=== PATIENT | female | born 1935 | race Caucasian/White ===

== ENCOUNTER 2022-07-21 13:56 | Outpatient (RCR) | payer MEDICARE, OTHER, SELFPAY ==
--- NOTE | 2022-07-21 15:10 | PTOPEVAL1 ---
Assessment and note entered by Violette Sanchez, PT Evaluation Information Assessment Status Evaluation/ discharge Diagnosis B LE lymphedema Subjective Information Daughter Yari is present with pt and reports she has a pump for legs, they are doing 2x/day; She reports Joselin is not able to come in for therapy 2-3x/week. She thought this was dr visit for lymphedema, did not realize it was therapy and she had to come more than once. There is not transportation available to bring her in for lymphedema treatment. She called her dad on the phone and they are interested in the velcro garments, to use instead of the gus bandage wraps. Reported Pain Level Pain Score Self Report Additional Pain Score Comments both knees with pain and legs tender and sore to touch Assessment PT Clinical Summary Joselin has the diagnosis of B LE lymphedema. Her daughter brought her in today and they were expecting a one time visit only, did not realize it was a referral for treatment and would require 2-3x/wk visits. They are not able to do this due to transportation issues and pt's decreased mobility. She is currently residing at assisted living facility and getting PT there for mobility. Education provided to pt and Yari--general lymphedema information, what PT treatment involves elevating legs, doing leg exercises to help decrease swelling,skin care, LE precautions. Discussed use of compression velcro garment, instead of the gus wraps to manage her legs. They were interested in the velcro garments; Measured her legs for [employer] juxtafit essential lower leg garments: size medium, length short; issued info to pt and list of suppliers where they can order them. The garments come with instructions and there is online education videos for them. Issued her my name and number to call for any questions. Discharge PT services, due to pt is not able to return for treatments. Plan of Care PT Services Indicated No These treatments will address the objective and functional deficits as defined above. The patient will be advanced safely and appropriately in order for the patient to progress towards his/her prior level of function. Additional exercises will be introduced and as well as a comprehensive home exercise program upon discharge
== END 2022-07-21 15:22 | disposition home or self-care (01) ==
LOC: ANHPT 13:56
PROVIDERS: PCP Family Medicine; Visit Provider Family Medicine
DX: I89.0 Lymphedema, not elsewhere classified (principal)
CPT/HCPCS: 97161

== ENCOUNTER 2022-12-05 17:18 | Emergency (ER) | payer MEDICARE, OTHER, SELFPAY ==
--- NOTE | ~2022-12-05 | XR_ITS ---
EXAM: XR tibia fibula RT 2V DATE: 12/05/2022 17:44 HISTORY: Skin tear to right lower leg . COMPARISON: None available. FINDINGS: Decreased mineralization. No fracture or dislocation. No lytic or blastic lesion. Moderate degenerative changes in the knee, ankle, and midfoot. Plantar and Achilles enthesopathy. No erosion or periosteal change. Soft tissue swelling and cutaneous irregularity anteriorly. Vascular calcificat ions. IMPRESSION: No acute osseous finding in the right tibia/fibula. Reviewed, dictated and finalized at location K.
[2022-12-05 17:23] VITALS: BP 143/74; PULSE 89; RESP 18; TEMP 36.7; O2SAT 97
--- NOTE | 2022-12-05 17:30 | ED.WOUNDLAC ---
HPI - Wound/Laceration General Chief Complaint: Wound/Laceration Stated Complaint: leg lac Time Seen by Provider: 12/05/22 17:22 History of Present Illness HPI narrative: Joselin Zavala is an 87-year-old female with a history of Alzheimer's dementia and lymphedema here from her nursing facility over concerns of a laceration to her right lower extremity. Patient is unsure how she sustained a laceration, she believes that she scraped her leg against an object. She was referred from her nursing facility because they were unable to control the bleeding. She arrives with a bandage in place and the bleeding is controlled at this time. She denies any head injury or loss of consciousness and has no evidence of head trauma on exam. Related Data Allergies Allergy/AdvReac Type Severity Reaction Status Date / Time No Known Allergies Allergy Verified 12/05/22 17:59 Review of Systems Review of Systems: Gen.: Denies fevers or chills Eyes: Denies eye pain or visual change ENT: Denies congestion Respiratory: Denies shortness of breath or cough CV: Denies chest pain or palpitations GI: Denies abdominal pain nausea, emesis or diarrhea denies burning, urgency, frequency or hematuria Musculoskeletal: Denies back pain or muscle pain Neuro: Denies numbness, tingling, weakness or focal weakness Skin: Reports laceration Except as documented, all other systems reviewed and negative Exam Narrative: APPEARANCE: Pleasantly confused elderly female in no apparent distress resting comfortably Head: Normocephalic and atraumatic. EYES: PERRLA/EOMI, conjunctivae clear NOSE: No nasal drainage EARS: External ear normal in appearance THROAT: Oropharynx is clear. Mucous membranes are moist. NECK: Supple. No adenopathy, no masses. RESPIRATORY: Airway patent, respirations nonlabored. Clear to auscultation bilaterally, no rales, rhonchi, wheezing. CARDIOVASCULAR: Regular rate and rhythm without murmurs, rubs, or gallops. ABDOMINAL: Normoactive bowel sounds. Soft, nontender, nondistended. No rebound tenderness or guarding. MUSCULOSKELETAL: Extremities are warm and well-perfused. Moves all extremities well. No edema. NEURO: Normal speech. No focal neurologic deficits. SKIN: There is a 2 cm V-shaped skin flap laceration overlying the right tibia with no active bleeding PSYCHIATRIC: Normal affect/mood.. Course Vital Signs Vital signs: Vital Signs Temperature 98.0 F 12/05/22 17:23 Pulse Rate 89 12/05/22 17:23 Respiratory Rate 18 12/05/22 17:23 Blood Pressure 143/74 H 12/05/22 17:23 Pulse Oximetry 97 12/05/22 17:23 Oxygen Delivery Room Air 12/05/22 17:23 Temperature 98.0 F 12/05/22 17:23 Pulse Rate 70 12/05/22 19:46 Respiratory Rate 18 12/05/22 19:46 Blood Pressure 107/58 L 12/05/22 19:46 Pulse Oximetry 100 12/05/22 19:46 Oxygen Delivery Room Air 12/05/22 17:23 MDM - Wound/Laceration MDM Narrative Medical decision making narrative: 87-year-old female here from her nursing facility due to concerns over a skin tear to her right lower extremity sustained earlier today, unclear mechanism. The wound appears amenable to repair with Steri-Strips which was done in the ED. There is no underlying fracture on the x-ray. Patient denies any injury or other injuries and has no evidence of head trauma or neck trauma on exam. According to daughter she has propensity to skin infections after she has lacerations so we will send home with prophylactic Keflex. Tetanus was updated. Return precautions were discussed and patient and daughter voiced understanding. Discharge Plan Discharge Clinical Impression: Flap laceration of skin Patient Disposition: NH Halfway/Asst Living Condition: Stable Instructions: Antibiotic Form, Skin Avulsion (ED), Steristrips (ED) Additional Instructions: You had Steri-Strips placed in the ER today. I am going to place you on antibiotics in case you develop an infection. Return to the ED i
[2022-12-05] MEDS: LIDOCAINE, EPINEPHRINE, TETRACAINE VISCOUS SOLN 3 ML TOPICAL (18:13)
[2022-12-05] MEDS: TETANUS,DIPHTHERIA,AC PERTUSSIS ADULT (0.5 ML) BOOSTRIX IM (18:13)
[2022-12-05 19:46] VITALS: BP 107/58; PULSE 70; RESP 18; O2SAT 100
== END 2022-12-05 19:49 ==
PROVIDERS: Emergency Provider Physician Assistant; PCP Family Medicine
DX: S81.812A Laceration without foreign body, left lower leg, initial encounter (principal); G30.9 Alzheimer's disease, unspecified; F02.80 Dementia in other diseases classified elsewhere, unspecified severity, without behavioral disturbance, psychotic disturbance, mood disturbance, and anxiety; Z23 Encounter for immunization; W45.8XXA Other foreign body or object entering through skin, initial encounter; Y92.129 Unspecified place in nursing home as the place of occurrence of the external cause
CPT/HCPCS: 73590; 90471; 90715; 99283